=== PATIENT | female | born 1965 | race Caucasian/White ===

== ENCOUNTER 2019-10-20 00:24 | Inpatient (IN) | payer BC, OTHER ==
[~2019-10-20] VITALS: Ht 165.1 cm; Wt 95.4 kg
[2019-10-20] VITALS (28 sets, daily range): BP systolic 87–143; BP diastolic 38–70
[2019-10-20] MEDS ORDERED: ALBIGLUTIDE (00:46)
[2019-10-20] MEDS ORDERED: COMBIVENT RESPIM4 GM IH (00:47)
[2019-10-20] MEDS ORDERED: GABAPENTIN600 M1 PO (00:47)
[2019-10-20] MEDS ORDERED: ADVAIR 250-501 EACH INH (00:47)
[2019-10-20] MEDS ORDERED: LOVASTATIN 20 M20 MG PO (00:48)
[2019-10-20] MEDS ORDERED: HYDROCHLOROTH12.5 M2 PO (00:48)
[2019-10-20] MEDS ORDERED: MORPHINE PO ×3 (00:51→00:53)
[2019-10-20] MEDS ORDERED: NASAL MIST30 ML (00:55)
[2019-10-20] MEDS ORDERED: ZANAFLEX4 M1 (00:55)
--- NOTE | 2019-10-20 00:58 | NUR ---
CALL PLACED TO [facility], VANCOMYCIN HAD NOT BEEN GIVEN. WILL GIVE HERE
--- NOTE | 2019-10-20 04:22 | NUR ---
PATIENT ADMITTED FROM PACU AT 0415, PLACED ON MINITOR, ASSESSED WITH NURSE PRACTITIONER, NEW ORDERS NOTED. NO SIGN OF ACUTE DISTRESS AT THIS TIME.
[2019-10-20 04:34] LABS: HEMATOCRIT 37.2 % (37.0-47.0); HEMOGLOBIN 12.3 gm/dL (12.0-15.0); MCH 30.4 pg (26.0-34.0); MCV 92.1 fL (80.0-100.0); RBC 4.03 mil/uL (4.20-5.00); RDW 13.4 % (10.5-14.5); WBC 24.2 thou/uL (4.0-11.0)
[2019-10-20 05:00] LABS: CALCIUM 8.5 mg/dL (8.5-10.1); CREATININE 1.1 mg/dL (0.6-1.0); POTASSIUM 3.4 mmol/L (3.5-5.1)
[2019-10-20] MEDS ORDERED: OXYCODONE HCL10 MG PO (05:41)
--- NOTE | 2019-10-20 05:43 | NUR ---
PATIENT ALERT AND ORIENTED X4, PAIN MILDLY CONTROLLED WITH MEDICATION. DR. SINGH NOTIFIED NEW ORDERS NOTED. SPOKE WITH DR. SINGH ABOUT LABWORK SENT DURING SURGERY. HE STATED MULTIPLE SPECIMENS WERE SENT BUT CSF FLUID WAS NOT IN THE SAMPLE. J/P DRAIN AND HEMOVAC PRESENT. COLE PATIENT WITH ADEQUATE OUTPUT. NO SIGN OF ACUTE DISTRESS NOTED AT THIS TIME. WILL CONTINUE TO MONITOR.
[2019-10-20 11:48] LABS: INR 1.2; PROTIME 12.3 Seconds (9.3-11.4)
[2019-10-20 15:57] LABS: CSF GLUCOSE 73 mg/dL (40-70); CSF PROTEIN 143 mg/dL (15-45)
[2019-10-20 16:07] LABS: CSF RBC 621 /mm3
[2019-10-20 16:13] LABS: CSF CLARITY CLOUDY; VOLUME 6 ml
[2019-10-20 16:18] LABS: CSF COLOR COLORLESS
--- NOTE | 2019-10-20 16:18 | NUR ---
Chart reviewed and case discussed with the care team. Pt is currently in ICU in [facility] for possible menningitis. Pt with fevers at this time. Bedside visit deferred. No family here at present. Nursing reports the pt lives at home with her spouse and adult dtr. Pt's dtr was here this am and her spouse is currently out of town with his job. The pt is normally indep with gait and adl's. She has a hx of neck and back fusion from an incident with her garage door. Dc planning needs are uncertain at this time. Will follow along should the pt need iv atb, hh or rehab at dc. Will ask for therapy evals as appropriate.
[2019-10-20 17:17] LABS: CSF EOSINOPHILS 1 %; CSF POLYS 87 %
[2019-10-20 17:21] LABS: CSF WBC 3226 /mm3 (0-10)
--- NOTE | 2019-10-20 19:30 | NUR ---
PATIENT TEMP RANGE FROM 102.3-102.7. NURSE INFORMED THIS TO PRIMARY PHYSICIAN AND TO INFECTION DISEASE PHYSICIAN. ORDERS RECEIVED THROUGHOUT THE DAY. PATIENT NPO AND NURSE ASKED FOR RECTAL TYLENOL. NO NEW ORDER. PATIENT WENT FOR LUMBAR PUNCTURE. SHE WAS ABLE TO MAKE IT THROUGH, HOWEVER, SHE EXPRESSED PAIN. SHE WAS OUT OF ICU WITH TATTOO AND BODY ARTIST FROM APPROXIMATELY [phone]. LUMBAR PUNCTURE SITE NOT NOTICEABLE. PATIENT HAS EXPRESSED PAIN UNCONTROLLED THROUGHOUT THE DAY. THIS WAS RELAYED TO ALL PHYSICIANS, PAIN MEDICATIONS CHANGED MULTIPLE TIMES TO SEE IF PAIN CAN BE CONTROLLED. MAP DROPPED BELOW 60MMHG AND PATIENT RESPIRATORY RATE WAS 7-10 AT ONE POINT. PATIENT WAS MILDLY SLEEPY, HOWEVER PAIN WAS STILL NOT CONTROLLED. FLUID BOLUS WAS PROVIDED WITH IMPROVED MAP >60MMHG. PATIENT VOMITED MUTLIPLE TIMES TODAY WITH MINIMAL CONTROL FROM NAUSEA MEDICATIONS. PLAN OF CARE IS DECREASE SIGNS OF INFECTION, PAIN CONTROL, NAUSEA CONTROL, AND FEVER CONTROL. SHE IS NOT PROGRESSING TOWARDS PLAN OF CARE FOR PAIN, NAUSEA, FEVER ARE NOT CONTROLLED TODAY.
[2019-10-21] VITALS (16 sets, daily range): BP systolic 102–137; BP diastolic 43–68
--- NOTE | 2019-10-21 06:30 | NUR ---
Received report from offgoing RN and assumed patient care. Patient c/o severe headache and back pain. Patient taken to CT and results came back negative. Patient medicated with Dilaudid and Fentanyl and patient stated that the meds make her head and neck throb. Patient requested to get restarted on her home med Zanaflex. A one-time order was given and patient was able to rest and sleep. NUT FEEDER restarted her med after success. VS remained stable and no acute events occurred. Patient is progressing toward goal.
[2019-10-21 06:49] LABS: ABSOLUTE NEUTROPHILS 17.4 thou/uL (1.4-8.2); BASOPHILS 0.2 % (0.0-2.0); EOSINOPHILS 0.2 % (0.0-3.0); HEMOGLOBIN 10.4 gm/dL (12.0-15.0); LYMPHOCYTES 6.6 % (24.0-44.0); MCH 30.4 pg (26.0-34.0); MCHC 33.6 g/dL (28.0-37.0); MCV 90.5 fL (80.0-100.0); MONOCYTES 4.5 % (1.0-8.0); PLATELET COUNT 229 thou/uL (150-400); POLYS 88.5 % (36.0-66.0); RBC 3.43 mil/uL (4.20-5.00); RDW 12.9 % (10.5-14.5); WBC 19.7 thou/uL (4.0-11.0)
[2019-10-21 07:05] LABS: ALBUMIN 2.9 g/dL (3.4-5.0); CALCIUM 7.8 mg/dL (8.5-10.1); CREATININE 0.6 mg/dL (0.6-1.0); POTASSIUM 3.1 mmol/L (3.5-5.1); TOTAL BILIRUBIN 0.8 mg/dL (<0.1-1.0); TOTAL PROTEIN 6.5 g/dL (6.4-8.2)
--- NOTE | 2019-10-21 15:46 | NUR ---
Request rec'd for transfer to [facility] per pt request. Pt's neuro surgeon is there and she has had most of her "spinal" care there. Request called to their transfer RN Susie [phone] and clinical faxed to [phone]. Radiology notified to upload any imaging to the cloud. Transfer form, chart copy and [facility] form on the chart should the pt be accepted. Care team updated. Will follow.
--- NOTE | 2019-10-21 18:25 | NUR ---
PT HAS SANGENIOUS DRAINGE FROM HEMOVAC/YUKI DRAIN. NO S/S OF ANY OTHER BLEEDING. PT GETTING PICC LINE INSERTION FOR MANAGMENT OF ANTIBIOTICS. PT PLANNING TO TRANSFER TO [facility]. WOULD LIKE TO BE AT THE SAME HOSPITAL THE PHYSICIAN WHO PERFORMED HER SURGERY. PAIN CONTROLLED TODAY.
--- NOTE | 2019-10-21 19:45 | NUR ---
CONSULTED TO PLACE A PICC FOR A PATIENT IN ICU. ORDER AND CONSENT NOTED. THE PROCEDURE WELL BENIFITS AND RISK FOR DVT AND INFECTION DISCUSSED. A DANIEL TRIPLE LUMEN PICC WAS PLACED PER HOSPITAL POLICY AFTER A BEDSIDE TIMEOUT WAS COMPLETED. PICC WAS TRIMMED TO 40CM AND ADVANCED WITHOUT DIFFICULTY.A STAT CHESR XRAY WAS ORDERED TO CONFIRM PLACEMENT
--- NOTE | 2019-10-21 20:38 | HC ---
[facility] [place] [address] CONSULTATION Name: SWAPNIL TSE Room #: 243-P [facility] IN .R.#: [id number] Admission: 10/20/19 Attend Phys: Juan Oates MD Discharge: Date of : 63 Report #: [id number] THIS REPORT FOR: cc: CARLOS CHAVIS Physician not on staff Harjinder Reddy MD ~ CC: Je HCAVIS Physician staff DATE OF SERVICE: 10/20/2019 INFECTIOUS DISEASE CONSULTATION REASON FOR CONSULTATION: I was asked to evaluate concerning meningitis in the setting of intrathecal pump infection. HISTORY OF PRESENT ILLNESS: A 54-year-old with cervical and lumbar fusion with chronic lumbar back pain occurring after a traumatic event remotely. About 12 years ago, she had an intrathecal pump placement and developed infection. This was removed. Subsequently, she has had a spinal stimulator placed about a year ago in the mid thoracic spine. She was not getting much relief with this and an implantable intrathecal pain pump was placed on 10/01/2019. She subsequently developed infection at the surgical site. Developed back pain associated with fever up to 102 degrees. She has had chills, severe neck pain and headache. This has been associated with nausea and vomiting. Presents last evening to the Emergency Room where she was taken to the OR by Dr. Matt Simmons who removed the intrathecal pain pump. There was purulent material surrounding the pocket of the generator as well as the insertion site into the spine. This was explanted without intraoperative complication. Postoperatively, she continues to have significant back pain and headache. She had a lumbar aspiration for CSF, which showed over 3000 cells and elevated protein. Gram stain is pending. Following this, her headache has persisted with no improvement. She has had temperature of 102 degrees all afternoon. She rates her pain 8-10 range. She has had no cough or sputum production. There has been no abdominal pain or diarrhea. She has actually been constipated. She has an indwelling De Anda catheter. She has a peripheral IV in place. She does have diabetes and asthma. There has been no change in these issues. REVIEW OF SYSTEMS: A 14-point review of systems was negative other than what has been discussed above. PAST MEDICAL HISTORY: Diabetes, hypertension, asthma, chronic back pain, cervical fusion, lumbar fusion following traumatic event remotely. Spinal procedures as noted above. [address] [address] CONSULTATION Name: SWAPNIL TSE Room #: 243-P [facility] IN .R.#: [id number] Admission: 10/20/19 Attend Phys: Juan Oates MD Discharge: Date of : 63 Report #: [id number] ALLERGIES: None known. MEDICATIONS: Albiglutide, ipratropium, albuterol, Advair, gabapentin, hydrochlorothiazide, lovastatin, morphine, oxymetazoline, tizanidine, oxycodone, vancomycin and cefepime. FAMILY HISTORY: Negative for tuberculosis. SOCIAL HISTORY: Nonsmoker, no significant alcohol intake. No HIV risk factors. PHYSICAL EXAMINATION: VITAL SIGNS: Temperature is 102.5, pulse 87, blood pressure 111/43. She was in significant amount of pain, but was able to converse and gave a reasonable history. SKIN: Without rash or decubitus. She had an incision along the left paraspinous region with surrounding erythema, no drainage. Hemovac was in place. Lumbar spine incision with surrounding erythema and no drainage. No palpable adenopathy. HEENT: Eyes, without scleral icterus. Pupils were equal, round and reactive to light. No conjunctivitis. Mouth without mucositis. NECK: Rigid. LUNGS: Consolidation heard in the right base posteriorly. No rub or other adventitial sounds. HEART: Regular, without murmur, gallop or rub. ABDOMEN: Soft, nontender, no hepatosplenomegaly or mass. GENITOURINARY: External genitalia without lesion and indwelling De Anda catheter. RECTAL: Not performed. EXTREMITIES: Without clubbing, cyanosis or edema. NEUROLOGIC: Cranial nerves were intact. Able to move all extremities. Strength in the lower extremities was normal. Sensation to touch was within normal limits. Mood was without anxiety or depression. BACK: As noted above. LABORATORY STUDIES: Reviewed. CSF with 3226 cells, 87% polys, glucose 73, protein 143. Gram stain shows no organisms. Back abscess Gram stain showed moderate gram-positive cocci. Cultures are pending. Blood cultures are pending. Creatinine 1.1. Hemoglobin 12.3, white count 24.2. Abdominal x-ray reviewed. Lumbar puncture reviewed. IMPRESSION: 1. A 54-year-old with intrathecal pain pump with surgical site infection with soft tissue abscess and meningitis. At this point, I am unclear for dealing with epidural abscess or further complications intracranially. 2. 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 3. Implantable nerve stimulator in place, thoracic spine. [facility] [address] [place] [address] CONSULTATION Name: SWAPNIL TSE Room #: 243-P [facility] IN .R.#: [id number] Admission: 10/20/19 Attend Phys: Juan Oates MD Discharge: Date of : 63 Report #: [id number] 4. Cervical and lumbar fusion. 5. Diabetes. 6. Asthma. RECOMMENDATIONS: I discussed the case in detail with nursing staff at the bedside as well as Dr. Simmons and Radiology staff member. We will image her brain and spine for evidence of abscess. Continue broad antibiotic coverage including both gram-positive and gram-negative organisms. Continue ICU support. <ELECTRONICALLY SIGNED> By: Harjinder Reddy MD 10/21/198 30 23 Harjinder Reddy MD /nt
[2019-10-22] VITALS: BP 132/61
[2019-10-22 02:14] VITALS: BP 112/54
[2019-10-22 03:55] VITALS: BP 127/61
[2019-10-22 05:17] LABS: HEMATOCRIT 31.3 % (37.0-47.0); HEMOGLOBIN 10.5 gm/dL (12.0-15.0); MCH 30.2 pg (26.0-34.0); MCHC 33.7 g/dL (28.0-37.0); MCV 89.8 fL (80.0-100.0); RBC 3.48 mil/uL (4.20-5.00); RDW 12.8 % (10.5-14.5); WBC 12.8 thou/uL (4.0-11.0)
[2019-10-22 05:42] LABS: CALCIUM 8.4 mg/dL (8.5-10.1); CREATININE 0.6 mg/dL (0.6-1.0); MAGNESIUM 2.2 mg/dL (1.8-2.4); POTASSIUM 3.1 mmol/L (3.5-5.1)
--- NOTE | 2019-10-22 06:27 | NUR ---
Received report and assumed patient care. Patient AAOx4 and on room air. Patient is SB/SR on the monitor. Pain controlled with Fentanyl and Zanaflex. Patient VS remained stable and no acute events occurred. Report called and patient transferred to M/S. Care relinquished.
--- NOTE | 2019-10-22 09:51 | NUR ---
spoke with pepito at transfer center, transferred was denied for medical necessity. zoe agosto reached out to hospitalist [facility], "since pain pump was removed here she should stay for continuity of care"/ transfer team pepito.
[2019-10-22 16:23] VITALS: BP 141/71
--- NOTE | 2019-10-22 18:09 | NUR ---
pt again requesting transfer to . spouse at bedside and says his hr person from the [facility] BETTER AT . S/W BENJAMIN AT TRANSFER CENTER TO INITIATE TRANSFER, PAPERWORK UPDATED AND UPDATED B[facility]JAMIN ON LATEST LABS, IV ABX ETC. AMB FORM UPDATED & FAXED TO [facility]. AWAITING CALL BACK TO SEE IF PT IS ACCEPTED. S/W DR NICOLE TO ALERT HIM OF THE PT'S REQUEST FOR TRANSFER.
[2019-10-22 19:30] VITALS: BP 141/70
== END 2019-10-22 19:33 | disposition short-term general hospital (02) | DRG 91 ==
LOC: ER 00:24 → ICU 01:02 → EROBS 01:02 → ICU 01:06 → ER 01:06 → ICU 03:55 → 4S 10-22 07:07
PROVIDERS: Emergency Medicine; Nurse Practitioner Family; Radiology Diagnostic Radiology; Specialist; ADMIT Internal Medicine
PROC: B548ZZA Ultrasonography of Superior Vena Cava, Guidance (ICD-10-PCS; principal; 2019-10-21)
PROC: 02HV33Z Insertion of Infusion Device into Superior Vena Cava, Percutaneous Approach (ICD-10-PCS; principal; 2019-10-21)
DX: T85.738A Infection and inflammatory reaction due to other nervous system device, implant or graft, initial encounter (principal); G03.9 Meningitis, unspecified; A41.01 Sepsis due to Methicillin susceptible Staphylococcus aureus; T81.41XA Infection following a procedure, superficial incisional surgical site, initial encounter; L02.818 Cutaneous abscess of other sites; J98.11 Atelectasis; Y84.8 Other medical procedures as the cause of abnormal reaction of the patient, or of later complication, without mention of misadventure at the time of the procedure; E11.9 Type 2 diabetes mellitus without complications; I10 Essential (primary) hypertension; J45.909 Unspecified asthma, uncomplicated; M54.9 Dorsalgia, unspecified; G89.4 Chronic pain syndrome; E78.5 Hyperlipidemia, unspecified; E87.6 Hypokalemia; Z79.899 Other long term (current) drug therapy; Y92.89 Other specified places as the place of occurrence of the external cause; Z98.1 Arthrodesis status
CPT/HCPCS: 10078; 10196; 27000; 50101; 50331; 50386; 50417; 50455; 53078; 56524; 56526; 57103; 62110; 62900; 70005